=== PATIENT | female | born 1955 | race Two or more races ===

== ENCOUNTER 2016-10-24 08:08 | Day surgery (SDC) | payer MEDICAID, SELFPAY ==
[~2016-10-24 08:08] MED LIST: Lactated Ringers 1,000 ML IV SCH; Sodium Chloride 0.9% 10 ML Syringe FLUSH PRN
[2016-10-24] MEDS ORDERED: Midazolam 1 MG/ML 2 ML SDV IV ONE (09:30)
[2016-10-24] MEDS ORDERED: Propofol 200 MG/20 ML SDV IV ONE (09:30)
--- NOTE | 2016-10-24 10:38 | PCM.OPNOTE ---
- General Post-Op/Procedure Note Date of Surgery/Procedure: 10/24/16 Operative Procedure(s): c scope with bx Findings: splenic flexure polyp Pre Op Diagnosis: screening Post-Op Diagnosis: splenic flexure polyp Primary Surgeon: Hasmukh Raymundo Anesthesia Provider: Tamika Licona Pathology: splenic flexure polyp Complications: None Condition: Good Free Text/Narrative:: see dictation
[2016-10-24 10:55] VITALS: BP 114/63
--- NOTE | 2016-10-24 15:00 | OR ---
DATE OF OPERATION: 10/24/2016 SURGEON: Hasmukh Raymundo MD PROCEDURE PERFORMED: Colonoscopy with cold forceps biopsy. PREOPERATIVE DIAGNOSIS: Need for screening C scope. POSTOPERATIVE DIAGNOSIS: Splenic flexure polyp. INDICATIONS FOR PROCEDURE: This is a 61-year-old female, who is referred for screening colonoscopy. She was offered and accepted the same. DESCRIPTION OF PROCEDURE: After an excellent IV sedation was administered, digital rectal exam was performed. No marked abnormality was noted. The flexible colonoscope was inserted and advanced to the cecum without difficulty. The prep was excellent. The following findings were noted. Ascending colon, unremarkable. Transverse colon, unremarkable. Descending colon at the splenic flexure, a small polypoid lesion, biopsied with cold biopsy forceps and sent for permanent. Sigmoid and rectum unremarkable. Colon was deflated, scope was removed. The patient tolerated the procedure well and was taken to the recovery room in good condition. /[id number] STEPHANIE/EBER
== END 2016-10-24 11:15 | disposition home or self-care (01) ==
LOC: FB.SDS 08:08
PROVIDERS: ATTEND Surgery
DX: Z12.11 Encounter for screening for malignant neoplasm of colon (principal); K63.5 Polyp of colon; E11.9 Type 2 diabetes mellitus without complications; E78.5 Hyperlipidemia, unspecified; Z90.49 Acquired absence of other specified parts of digestive tract; Z98.890 Other specified postprocedural states; Z72.0 Tobacco use; Z90.710 Acquired absence of both cervix and uterus; Z79.899 Other long term (current) drug therapy
CPT/HCPCS: 45380; 82962; 88305; J2250; J2704; J7120